=== PATIENT | male | born 1975 | race Caucasian/White ===

== ENCOUNTER → 2018-06-05 | Outpatient (CLI) | payer BC ==
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
== END ==
LOC: M WUC 13:13
PROVIDERS: ATTEND Physician Assistant
DX: J70.5 Respiratory conditions due to smoke inhalation (principal)

== ENCOUNTER → 2023-09-22 | Outpatient (CLI) | payer OTHER | LOC: M PLARAD 14:20 | PROVIDERS: ATTEND Nurse Practitioner Family | DX: G43.009 Migraine without aura, not intractable, without status migrainosus (principal) ==